=== PATIENT | male | born 1960 | race Caucasian/White ===

== ENCOUNTER 2017-04-09 17:35 | Emergency (ER) | payer OTHER ==
[~2017-04-09] VITALS: Ht 193 cm; Wt 102.1 kg
[2017-04-09] MEDS ORDERED: SODIUM CHLORIDE FLUSH 10ML SYR IVF ONE (18:30)
[2017-04-09 18:52] LABS: HEMATOCRIT 47.6 % (39.2-51.8); HEMOGLOBIN 16.7 g/dL (13.7-18.0); WHITE BLOOD COUNT 4.4 x10^3/uL (3.4-10)
[2017-04-09 19:01] LABS: BLOOD UREA NITROGEN 15 mg/dL (7-18)
[2017-04-09 19:05] LABS: IS PT STATUS REG ER OR PRE ER? YES
[2017-04-09 19:57] VITALS: BP 113/78
== END 2017-04-09 20:00 | disposition home or self-care (01) ==
LOC: ED 19:54
DX: R07.2 Precordial pain (principal); J20.8 Acute bronchitis due to other specified organisms; J01.00 Acute maxillary sinusitis, unspecified
CPT/HCPCS: 36415; 71010; 80048; 82040; 84484; 85025; 93005; 99285

== ENCOUNTER 2018-11-10 11:55 | Observation (INO) | payer BC, OTHER ==
[~2018-11-10] VITALS: Ht 193 cm; Wt 105.8 kg
--- NOTE | 2018-11-10 12:19 | NUR ---
SUPRIYA OTTO AT BEDSIDE TO LUDIN PT. CONTACT WITH PT, 58 YR OLD MALE HERE WITH C/O "MY LEFT ARM IS HURTING AND MY HEAD FEELS LIKE IT IS GOING TO EXPLODE, FEELS LIKE SOMEONE HAS THEIR HAND ON MY BACK TO THE FRONT OF MY CHEST. IT FEELS TIGHT. I'M DIZZY, SOB AND HAVE NO ENERGY." BEGAN LAST WEEKEND. TOOK IT EASY ALL WEEK, THEN THE SX RESTARTED LAST NIGHT.
[2018-11-10] MEDS ORDERED: ACETAMINOPHEN 325 MG TABLET PO ONE (12:30)
[2018-11-10] MEDS ORDERED: DIPHENHYDRAMINE 25 MG CAPSULE PO ONE (12:30)
[2018-11-10] MEDS ORDERED: KETOROLAC 30 MG/1 ML IM ONE (12:30)
[2018-11-10] MEDS ORDERED: ONDANSETRON ODT 4 MG PO ONE (12:30)
[2018-11-10] MEDS ORDERED: ONDANSETRON ODT 4 MG ONE (12:37)
[2018-11-10] MEDS ORDERED: KETOROLAC 30 MG/1 ML ONE (12:37)
[2018-11-10] MEDS ORDERED: DIPHENHYDRAMINE 25 MG CAPSULE ONE (12:37)
[2018-11-10] MEDS ORDERED: ACETAMINOPHEN 325 MG TABLET ONE (12:37)
[2018-11-10 12:47] LABS: BASOPHILS # (AUTO) 0.06 x10^3/uL (0-0.1); BASOPHILS % (AUTO) 1 % (0-1); EOSINOPHILS # (AUTO) 0.13 x10^3/uL (0-0.4); EOSINOPHILS % (AUTO) 1 % (1-7); LYMPHOCYTES # (AUTO) 1.61 x10^3/uL (1-3.4); LYMPHOCYTES % (AUTO) 18 % (22-44); MD NO; MEAN CORPUSCULAR HEMOGLOBIN 32.8 pg (27.5-34.5); MEAN CORPUSCULAR HGB CONC 33.8 g/dL (33.2-36.2); MEAN CORPUSCULAR VOLUME 97.3 fL (81-97); MEAN PLATELET VOLUME 8.4 fL (7.4-10.4); MONOCYTES # (AUTO) 0.47 x10^3/uL (0.2-0.8); MONOCYTES % (AUTO) 5 % (2-9); NEUTROPHILS # (AUTO) 6.72 x10^3/uL (1.8-6.8); NEUTROPHILS % (AUTO) 75 % (42-75); PLATELET COUNT 218 x10^3/uL (130-400); RED BLOOD COUNT 4.67 x10^6/uL (4.38-5.82)
[2018-11-10 12:58] LABS: ANION GAP 7 mmol/L (5-15); CALCIUM 8.7 mg/dL (8.5-10.1); CHLORIDE 108 mmol/L (98-107)
[2018-11-10 13:04] LABS: ALKALINE PHOSPHATASE 48 U/L (45-117); CREATININE 1.02 mg/dL (0.7-1.3); TOTAL PROTEIN 6.7 g/dL (6.4-8.2); TROPONIN I < 0.015 ng/mL (0.000-0.045)
[2018-11-10 13:13] LABS: ALANINE AMINOTRANSFERASE 30 U/L (12-78); BILIRUBIN,TOTAL 0.7 mg/dL (0.2-1.0)
--- NOTE | 2018-11-10 13:15 | NUR ---
PT DOZING INTERMITTENTLY, AROUSES EASILY. PT WITH PAIN DECREASED TO 1/10. "I FEEL RELAXED" PT WITH "PRESSURE" TO HEAD. ARM PAIN IMPROVED, NAUSEA GONE, NO CHANGE IN CHEST/BACK PRESSURE. SR PER MONITOR. PT AWARE OF WAITING FOR TEST RESULTS. NO NEEDS EXPRESSED AT THIS TIME. PTS AT BEDSIDE.
--- NOTE | 2018-11-10 14:20 | NUR ---
NO CHANGE IN PT CONDITION NOTED. CONT SR PER MONITOR. NO NEEDS EXPRESSED AT THIS TIME. WAITING FOR ROOM ASSIGNMENT.
[2018-11-10] MEDS: NICOTINE 14MG/24 HR PATCH.TD24 TD SCH ×2 (15:00→17:37)
[2018-11-10] MEDS ORDERED: ACETAMINOPHEN 325 MG TABLET PO PRN (15:00)
[2018-11-10] MEDS ORDERED: hydrALAzine 20 MG/ML, 1ML IVPush PRN (15:00)
[2018-11-10] MEDS ORDERED: KETOROLAC 30 MG/1 ML IV PRN (15:00)
[2018-11-10] MEDS ORDERED: CYCLOBENZAPRINE 10 MG TABLET PO PRN (15:00)
[2018-11-10] MEDS ORDERED: morphine SULFATE 10 MG/ML, 1ML IVPush PRN (15:00)
[2018-11-10] MEDS ORDERED: NITROGLYCERIN 0.4 MG BOTTLE (25 TABS) SL PRN (15:00)
[2018-11-10] MEDS ORDERED: ONDANSETRON 2MG/ML, 2ML IVPush PRN (15:00)
[2018-11-10] MEDS ORDERED: DOCUSATE 100 MG CAPSULE PO PRN (15:00)
--- NOTE | 2018-11-10 15:03 | NUR ---
REPORT CALLED TO JESUS DYSON POC DISCUSSED.
[2018-11-10 16:24] VITALS: BP 134/82
[2018-11-10 18:41] VITALS: BP 102/64
[2018-11-10 18:50] LABS: TROPONIN I < 0.015 ng/mL (0.000-0.045)
[2018-11-11 00:38] VITALS: BP 100/63
[2018-11-11 00:59] LABS: ANION GAP 5 mmol/L (5-15); CALCIUM 8.6 mg/dL (8.5-10.1); CHLORIDE 109 mmol/L (98-107); CHOLESTEROL, TOTAL 182 mg/dL (140-239); TRIGLYCERIDES 188 mg/dL (50-200); VLDL CHOLESTEROL 38 mg/dL (0-25)
[2018-11-11 01:07] LABS: TROPONIN I < 0.015 ng/mL (0.000-0.045)
[2018-11-11 01:09] LABS: BASOPHILS # (AUTO) 0.03 x10^3/uL (0-0.1); BASOPHILS % (AUTO) 0 % (0-1); EOSINOPHILS # (AUTO) 0.29 x10^3/uL (0-0.4); EOSINOPHILS % (AUTO) 4 % (1-7); LYMPHOCYTES # (AUTO) 2.42 x10^3/uL (1-3.4); LYMPHOCYTES % (AUTO) 30 % (22-44); MD NO; MEAN CORPUSCULAR HEMOGLOBIN 32.4 pg (27.5-34.5); MEAN CORPUSCULAR HGB CONC 33.2 g/dL (33.2-36.2); MEAN CORPUSCULAR VOLUME 97.7 fL (81-97); MEAN PLATELET VOLUME 8.6 fL (7.4-10.4); MONOCYTES # (AUTO) 0.46 x10^3/uL (0.2-0.8); MONOCYTES % (AUTO) 6 % (2-9); NEUTROPHILS # (AUTO) 4.78 x10^3/uL (1.8-6.8); NEUTROPHILS % (AUTO) 60 % (42-75); PLATELET COUNT 202 x10^3/uL (130-400); RED BLOOD COUNT 4.44 x10^6/uL (4.38-5.82); RED CELL DISTRIBUTION WIDTH 13.5 % (9.4-14.8)
[2018-11-11 01:10] LABS: CHOL/HDL RATIO 5.2; HDL CHOL % 19 % (26-37); HDL CHOLESTEROL (DIRECT) 35 mg/dL (40-60); LDL CHOLESTEROL,CALCULATED 109 mg/dL (54-169); LDL/HDL RATIO 3.1 (0.5-3.0)
[2018-11-11 01:32] LABS: HEMOGLOBIN A1C 5.6 % (4.2-6.3)
[2018-11-11 06:59] VITALS: BP 110/69
[2018-11-11 12:23] VITALS: BP 100/64
[2018-11-11] MEDS: NICOTINE 14MG/24 HR PATCH.TD24 TD SCH (17:35)
[2018-11-11 19:47] VITALS: BP 111/71
[2018-11-12 00:09] VITALS: BP 109/68
[2018-11-12 07:06] VITALS: BP 114/74
[2018-11-12] MEDS ORDERED: REGADENOSON 0.4 MG/5 ML SYRINGE ONE (08:18)
[2018-11-12] MEDS ORDERED: NICOTINE GUM 2 MG BC PRN (11:00)
[2018-11-12 13:06] VITALS: BP 121/78
[2018-11-12] MEDS ORDERED: SIMV20TA3 PO (13:49)
[2018-11-12] MEDS ORDERED: ASPI81TA45 PO (13:49)
== END 2018-11-12 15:20 | disposition home or self-care (01) ==
LOC: ED 14:03 → EDIP 14:25 → INTOOBSV 14:25 → 5SO 17:31
PROVIDERS: ADMIT Internal Medicine; ATTEND Internal Medicine
DX: R07.89 Other chest pain (principal); R42 Dizziness and giddiness; R06.00 Dyspnea, unspecified; R51 Headache; F17.210 Nicotine dependence, cigarettes, uncomplicated
CPT/HCPCS: 36415; 70450; 71045; 78452; 80048; 80053; 80061; 83036; 83735; 84100; 84443; 84484; 85025; 93005; 93017; 93306; 96372; 96374; 99284; A9502; C9898; G0378; J1885; J2785; Q0162; Q0163

== ENCOUNTER 2019-04-18 12:34 | Outpatient (CLI) | payer BC ==
[~2019-04-18 12:34] MED LIST: ASPI81TA45 PO; SIMV20TA3 PO
== END 2019-04-18 23:59 | disposition home or self-care (01) ==
LOC: CVU 12:34
PROVIDERS: ATTEND Internal Medicine Cardiovascular Disease
DX: R42 Dizziness and giddiness (principal); Z87.891 Personal history of nicotine dependence
CPT/HCPCS: 93880

== ENCOUNTER 2019-05-01 10:44 | Outpatient (CLI) | payer BC | END 2019-05-01 23:59 | disposition home or self-care (01) | LOC: CFH 10:44 | PROVIDERS: ATTEND Nurse Practitioner Family | DX: M47.812 Spondylosis without myelopathy or radiculopathy, cervical region (principal); M48.02 Spinal stenosis, cervical region; Z87.891 Personal history of nicotine dependence | CPT/HCPCS: 72141 ==